=== PATIENT | female | born 1975 | race Two or more races ===

== ENCOUNTER 2018-08-02 18:40 | Emergency (ER) | payer MEDICAID ==
[~2018-08-02] VITALS: Ht 152.4 cm; Wt 75.4 kg
[2018-08-02] MEDS ORDERED: PLEASE ENTER HEIGHT AND WEIGHT MC SCH (19:00)
[2018-08-02] MEDS ORDERED: SODIUM CHLORIDE FLUSH 10ML SYR IVF ONE (19:00)
[2018-08-02] MEDS ORDERED: ASPIRIN 81 MG TABLET CHEW PO ONE (19:00)
--- NOTE | 2018-08-02 19:00 | NUR ---
EKG DONE IN TRIAGE, REVIEWED BY SHIRA OGDEN
[2018-08-02 19:13] LABS: BASOPHILS # (AUTO) 0.01 x10^3/uL (0-0.1); BASOPHILS % (AUTO) 0 % (0-1); EOSINOPHILS # (AUTO) 0.03 x10^3/uL (0-0.4); EOSINOPHILS % (AUTO) 0 % (1-7); LYMPHOCYTES # (AUTO) 0.89 x10^3/uL (1-3.4); LYMPHOCYTES % (AUTO) 10 % (22-44); MD NO; MEAN CORPUSCULAR HEMOGLOBIN 31.2 pg (27.0-34.8); MEAN CORPUSCULAR HGB CONC 34.5 g/dL (32.4-35.8); MEAN CORPUSCULAR VOLUME 90.3 fL (80-100); MEAN PLATELET VOLUME 8.3 fL (7.4-10.4); MONOCYTES # (AUTO) 0.41 x10^3/uL (0.2-0.8); MONOCYTES % (AUTO) 5 % (2-9); NEUTROPHILS # (AUTO) 7.79 x10^3/uL (1.8-6.8); NEUTROPHILS % (AUTO) 85 % (42-75); PLATELET COUNT 250 x10^3/uL (130-400); RED BLOOD COUNT 4.78 x10^6/uL (3.82-5.3)
[2018-08-02] MEDS ORDERED: ASPIRIN 81 MG TABLET CHEW ONE (19:16)
[2018-08-02 19:24] LABS: ALBUMIN 3.7 g/dL (3.4-5.0); ANION GAP 6 mmol/L (5-15); CALCIUM 9.6 mg/dL (8.5-10.1); CHLORIDE 105 mmol/L (98-107)
--- NOTE | 2018-08-02 19:25 | NUR ---
Assumed care of patient. C/O bilat chest pain, LBP and BLE pain worse when ambulating. Bilat 2+ pedal edema. Placed on NIBP, pulse ox, and cardiac rehabilitation specialist. Will continue to monitor.
[2018-08-02 19:29] LABS: ALANINE AMINOTRANSFERASE 34 U/L (12-78); ALKALINE PHOSPHATASE 161 U/L (45-117); BILIRUBIN,TOTAL 0.5 mg/dL (0.2-1.0); CREATININE 0.79 mg/dL (0.55-1.02); TOTAL PROTEIN 8.2 g/dL (6.4-8.2); TROPONIN I < 0.015 ng/mL (0.000-0.045)
[2018-08-02 20:15] LABS: FREE T4 (FREE THYROXINE) 0.93 ng/dL (0.76-1.46); THYROID STIMULATING HORMONE 1.37 mIU/L (0.358-3.740)
--- NOTE | 2018-08-02 20:43 | NUR ---
VSS. No other needs at this time.
[2018-08-02] MEDS ORDERED: OMNIPAQUE 350 MG/ML, 100ML BOTTLE ONE (21:28)
--- NOTE | 2018-08-02 21:44 | NUR ---
Patient in US.
--- NOTE | 2018-08-02 21:47 | NUR ---
MD at bedside discussing POC. VSS.
[2018-08-02 21:48] VITALS: BP 149/81
--- NOTE | 2018-08-02 21:54 | NUR ---
ASSUMED CARE OF PATIENT. REPORT GIVEN FROM LEIGH GRAY
== END 2018-08-02 22:35 | disposition home or self-care (01) ==
LOC: ED 22:29
DX: R07.89 Other chest pain (principal); R53.1 Weakness; F17.200 Nicotine dependence, unspecified, uncomplicated
CPT/HCPCS: 36415; 71045; 71275; 80053; 84439; 84443; 84484; 85025; 85379; 93005; 93971; 99284; Q9967

== ENCOUNTER 2019-02-05 14:26 | Emergency (ER) | payer SELFPAY ==
[~2019-02-05] VITALS: Ht 152.4 cm; Wt 74.2 kg
[2019-02-05 15:15] LABS: BASOPHILS # (AUTO) 0.03 x10^3/uL (0-0.1); BASOPHILS % (AUTO) 1 % (0-1); EOSINOPHILS # (AUTO) 0.09 x10^3/uL (0-0.4); EOSINOPHILS % (AUTO) 2 % (1-7); LYMPHOCYTES # (AUTO) 1.18 x10^3/uL (1-3.4); LYMPHOCYTES % (AUTO) 24 % (22-44); MD NO; MEAN CORPUSCULAR HEMOGLOBIN 30.4 pg (27.0-34.8); MEAN CORPUSCULAR VOLUME 92.2 fL (80-100); MONOCYTES # (AUTO) 0.29 x10^3/uL (0.2-0.8); MONOCYTES % (AUTO) 6 % (2-9); NEUTROPHILS # (AUTO) 3.43 x10^3/uL (1.8-6.8); NEUTROPHILS % (AUTO) 68 % (42-75); PLATELET COUNT 275 x10^3/uL (130-400); RED BLOOD COUNT 4.75 x10^6/uL (3.82-5.3); RED CELL DISTRIBUTION WIDTH 12.9 % (9.6-15.2)
[2019-02-05 15:17] LABS: ALANINE AMINOTRANSFERASE 40 U/L (12-78); ALBUMIN 3.5 g/dL (3.4-5.0); ANION GAP 3 mmol/L (5-15); CALCIUM 8.8 mg/dL (8.5-10.1); CHLORIDE 105 mmol/L (98-107)
[2019-02-05 15:19] LABS: ALKALINE PHOSPHATASE 161 U/L (45-117); BILIRUBIN,TOTAL 0.3 mg/dL (0.2-1.0); CREATININE 0.76 mg/dL (0.55-1.02); TOTAL PROTEIN 8.2 g/dL (6.4-8.2)
--- NOTE | 2019-02-05 15:48 | NUR ---
ASSUMED CARE OF PT
--- NOTE | 2019-02-05 15:56 | NUR ---
PT BACK FROM XRAY. OOB FOR URINE, GAIT STEADY. TO ED FROM HOME. STS HAD FLU SX 3 DAYS AGO-[place], [place], FEVER. SX ABATED. NOW C/O ABDOMINAL BLOATING, DARK STOOLS X3 DAYS, ABDOMEN FEELS "INFLAMED" 8/10 PAIN UNRELIEVED BY IBUPROFEN. DENIES HX GI BLEED, DENIES DIZZINESS, VOMITING, DIAHRREA, HEMORRHOIDS. VSS. AWAITING LAB RESULTS. PT AWARE OF NEED FOR OCCULT STOOL SAMPLE. CALL WALDRON IN REACH.
[2019-02-05 16:05] LABS: CULTURE INDICATED? YES; MICROSCOPIC INDICATED
--- NOTE | 2019-02-05 16:14 | NUR ---
TASK RN: PT ATTEMPTING TO PROVIDE STOOL SAMPLE TO TEST FOR OCCULT BLOOD.
--- NOTE | 2019-02-05 16:22 | NUR ---
TASK RN: PT RESTING ON GURNEY. CAMPOS. STEWS. STOO SAMPLE COLLECTED, LABELED, AND WALKED TO LAB.
[2019-02-05 17:15] VITALS: BP 119/71
--- NOTE | 2019-02-05 17:15 | NUR ---
PT AWAITING OCCULT STOOL RESULTS, WAS IN TO SPEAK W/ PT. PT VSS, C/O BLOATING. CALM.
--- NOTE | 2019-02-05 17:43 | NUR ---
DR. GRAY IN ROOM TO SPEAK W/ PT.
[2019-02-05 17:45] LABS: OCCULT BLOOD NEGATIVE (NEGATIVE)
--- NOTE | 2019-02-05 18:11 | NUR ---
TASK RN: PT NOT IN ROOM FOR D/C INSTRUCTIONS.
== END 2019-02-05 18:19 | disposition home or self-care (01) ==
LOC: ED 18:13
DX: K59.00 Constipation, unspecified (principal); R10.84 Generalized abdominal pain; R21 Rash and other nonspecific skin eruption; F17.200 Nicotine dependence, unspecified, uncomplicated
CPT/HCPCS: 36415; 74021; 80053; 81001; 82272; 83690; 85025; 87086; 99284

== ENCOUNTER 2019-11-16 22:09 | Emergency (ER) | payer MEDICAID ==
[~2019-11-16] VITALS: Ht 152.4 cm; Wt 73.3 kg
[2019-11-16 22:11] VITALS: BP 157/98
--- NOTE | 2019-11-16 22:43 | NUR ---
THIS IS A 44Y F THAT COMES IN FOR BURNING WITH DEEP INSPIRATION. PT WAS SEEN AT MD OFFICE 2DAYS AGO AND GOT A CHEST XRAY BUT NO RESULTS YET. PT REPORTS THAT THE PAIN BEGAN ABOUT A WEEK AGO AND WAS INTERMITTENT BUT NOW DOES NOT GO AWAY AND WORSENS WITH DEEP INSPIRTATION. PT SAT WELL ON RA 96-98% SPEAKS IN FULL SENTENCES CONNECTED TO MONITORING, VSS
--- NOTE | 2019-11-16 23:20 | NUR ---
Patient/Caregiver given discharge instructions and they have confirmed that they understand the instructions. Patient ambulatory with steady gait.
== END 2019-11-16 23:26 | disposition home or self-care (01) ==
LOC: ED 22:39
DX: J06.9 Acute upper respiratory infection, unspecified (principal); R06.00 Dyspnea, unspecified; R07.89 Other chest pain; F17.210 Nicotine dependence, cigarettes, uncomplicated
CPT/HCPCS: 71046; 93005; 99283; 99406

== ENCOUNTER 2020-03-16 15:12 | Emergency (ER) | payer MEDICAID ==
[~2020-03-16] VITALS: Ht 160 cm; Wt 71.4 kg
[2020-03-16 15:21] VITALS: BP 154/109
[2020-03-16] MEDS ORDERED: ASPIRIN 81 MG TABLET CHEW PO ONE (15:30)
[2020-03-16] MEDS ORDERED: PLEASE ENTER HEIGHT AND WEIGHT MC SCH (15:30)
[2020-03-16 16:37] LABS: BASOPHILS % (AUTO) 1 % (0-1); EOSINOPHILS % (AUTO) 2 % (1-7); LYMPHOCYTES % (AUTO) 22 % (22-44); MEAN CORPUSCULAR HEMOGLOBIN 30.7 pg (27.0-34.8); MEAN CORPUSCULAR HGB CONC 33.8 g/dL (32.4-35.8); MEAN PLATELET VOLUME 8.4 fL (7.4-10.4); MONOCYTES % (AUTO) 7 % (2-9); NEUTROPHILS % (AUTO) 68 % (42-75); PLATELET COUNT 261 x10^3/uL (130-400); RED BLOOD COUNT 4.42 x10^6/uL (3.82-5.3); RED CELL DISTRIBUTION WIDTH 13.2 % (9.6-15.2)
[2020-03-16 16:41] LABS: ALBUMIN 3.4 g/dL (3.4-5.0); CALCIUM 8.8 mg/dL (8.5-10.1); CHLORIDE 107 mmol/L (98-107)
[2020-03-16 16:47] LABS: ALANINE AMINOTRANSFERASE 51 U/L (12-78); ALKALINE PHOSPHATASE 161 U/L (45-117); BILIRUBIN,TOTAL 0.3 mg/dL (0.2-1.0); CREATININE 0.76 mg/dL (0.55-1.02); TOTAL PROTEIN 7.5 g/dL (6.4-8.2); TROPONIN I < 0.015 ng/mL (0.000-0.045)
[2020-03-16 16:49] LABS: ANION GAP 4 mmol/L (5-15)
[2020-03-16 17:11] LABS: MD NO
== END 2020-03-16 18:26 | disposition left against medical advice (07) ==
LOC: ED 18:20
DX: R07.89 Other chest pain (principal); B34.9 Viral infection, unspecified
CPT/HCPCS: 36415; 71045; 80053; 83880; 84484; 85025; 93005; 99285

== ENCOUNTER 2020-03-16 19:53 | Emergency (ER) | payer MEDICAID ==
--- NOTE | 2020-03-16 20:07 | NUR ---
[id number]
== END 2020-03-16 20:36 | disposition left against medical advice (07) ==
LOC: ED 20:30
DX: B34.9 Viral infection, unspecified (principal)
CPT/HCPCS: 99281

== ENCOUNTER 2020-09-21 11:06 | Emergency (ER) | payer MEDICAID ==
[~2020-09-21] VITALS: Ht 152.4 cm; Wt 72.2 kg
[2020-09-21] MEDS ORDERED: DIPH,PERTUSS(ACELL),TET VAC/PF 0.5 ML IM-VACC ONE ×2 (12:28→12:30)
[2020-09-21] MEDS ORDERED: LIDOCAINE-MPF 2% ,5ML ONE (12:28)
[2020-09-21] MEDS ORDERED: LIDOCAINE 2%, 20ML SQ ONE (12:30)
[2020-09-21 12:54] VITALS: BP 117/72
[2020-09-21] MEDS ORDERED: NEOSPORIN OINT. PKT 1 PACKET ONE (13:32)
== END 2020-09-21 13:40 ==
LOC: ED 11:30
DX: S61.213A Laceration without foreign body of left middle finger without damage to nail, initial encounter (principal); K21.9 Gastro-esophageal reflux disease without esophagitis; X50.1XXA Overexertion from prolonged static or awkward postures, initial encounter; Y93.89 Activity, other specified; Y92.009 Unspecified place in unspecified non-institutional (private) residence as the place of occurrence of the external cause; Y99.8 Other external cause status
CPT/HCPCS: 12001; 90471; 90715; 99283; J3490